=== PATIENT | female | born 1955 | race Caucasian/White ===

== ENCOUNTER 2016-09-15 16:36 | Outpatient (CLI) | payer BC ==
--- NOTE | 2016-09-15 17:18 | Diagnostic Imaging Report ---
[facility] [id number] [facility] [address] [address] Report Submission Date: Sep 15, 2016 5:15:43 PM DEVELOPMENT REPRESENTATIVE Patient Study Name: ALFREDO CASEY Date: Sep 15, 2016 4:48:02 PM DEVELOPMENT REPRESENTATIVE Modality Type: CR Gender: F Description: SHOULDER : 53 Institution: [facility] Physician: SHAYY BRANNON - YUNG Bilateral shoulders Clinical history injury to left shoulder Findings: The right shoulder shows mild arthritic changes. No fracture dislocation is seen. The left shoulder shows a grade III ac joint disruption There cephalad subluxation of the clavicle. No fracture is seen. Impression: Left ac joint disruption grade III Electronically signed on Sep 15, 2016 5:15:43 PM DEVELOPMENT REPRESENTATIVE by: Melchor SAMUEL
== END 2016-09-15 16:42 | disposition home or self-care (01) ==
LOC: RAD 16:36
PROVIDERS: ATTEND Family Medicine
DX: S43.52XA Sprain of left acromioclavicular joint, initial encounter (principal); X58.XXXA Exposure to other specified factors, initial encounter; Y93.9 Activity, unspecified; Y92.9 Unspecified place or not applicable; Y99.9 Unspecified external cause status

== ENCOUNTER 2017-10-19 09:08 | Outpatient (CLI) | payer BC ==
--- NOTE | 2017-10-19 09:39 | Diagnostic Imaging Report ---
SHAYY BRANNON [facility] [address] [facility] [address] [address] Report Submission Date: Oct 19, 2017 9:36:00 AM CDT Patient Study Name: ALFREDO JUNG Date: Oct 19, 2017 9:10:43 AM CDT Modality Type: DX Gender: F Description: UPPER EXTREMITY : 53 Institution: [facility] Physician: SHAYY BRANNON Examination: Plain film left hand History: PT STATES 4TH MCP PAIN X 1 WEEK, NO KNOWN INJURY (Hx) / ITS.REASON deformity L 4th mcp (DICOM Hx) / ITS.REASON deformity L 4th mcp (Pt comments) Comparison exams: None available Findings: 4 views the left hand demonstrates mild articular spurring/ degenerative changes. No fracture. No dislocation. Specifically, 4th digit without acute appearing cortical abnormality. No soft tissue abnormality. Impression: Mild degenerative changes. No acute appearing osseous abnormality Electronically signed on Oct 19, 2017 9:36:00 AM CDT by: Sae SAMUEL
== END 2017-10-19 09:10 ==
LOC: RAD 09:08
PROVIDERS: ATTEND Family Medicine
DX: M25.542 Pain in joints of left hand (principal)
CPT/HCPCS: 73130

== ENCOUNTER 2018-01-11 08:59 | Outpatient (CLI) | payer OTHER ==
[2018-01-11 19:11] LABS: IRON SERUM 82 ug/dL (37-145)
== END 2018-01-11 09:00 ==
LOC: LAB 08:59
PROVIDERS: ATTEND Family Medicine
DX: Z83.49 Family history of other endocrine, nutritional and metabolic diseases (principal)
CPT/HCPCS: 36415; 82728; 83540